=== PATIENT | female | born 1995 ===

== ENCOUNTER 2016-03-20 18:39 | Emergency (ER) | payer OTHER ==
[2016-03-20 19:06] VITALS: BP 102/56
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
--- NOTE | 2016-03-20 20:38 | RAD ---
Indication: Foot injury. 3 views of the foot are reviewed. There is no fracture or dislocation. No other bone or joint abnormality is noted. IMPRESSION: No fracture of the foot is noted.
== END 2016-03-20 20:00 | disposition home or self-care (01) ==
LOC: UCEAST 18:39
DX: S90.31XA Contusion of right foot, initial encounter (principal); V48.1XXA Car passenger injured in noncollision transport accident in nontraffic accident, initial encounter; Y93.89 Activity, other specified; Y92.9 Unspecified place or not applicable
CPT/HCPCS: 99202; G0463